=== PATIENT | female | born 1960 | race Caucasian/White ===

== ENCOUNTER 2020-10-16 19:49 | Inpatient (IN) | payer BC ==
[~2020-10-16] VITALS: Ht 160 cm; Wt 130.8 kg
[2020-10-16 21:36] VITALS: BP 129/68
[2020-10-16] MEDS ORDERED: POTA10808 PO (21:39)
[2020-10-16] MEDS ORDERED: AMLO2.5T3 PO (21:39)
[2020-10-16] MEDS ORDERED: guaiFENesin 200 MG TAB PO PRN (21:45)
[2020-10-16] MEDS ORDERED: HOME MED LIST COMPLETE! XX SCH (21:45)
[2020-10-16] MEDS ORDERED: COMBIVENT RESPIMAT 100-20MCG INHALER 4GM INH PRN (21:45)
[2020-10-16 22:00] VITALS: O2SAT 94
[2020-10-16 22:35] LABS: HEMATOCRIT 42.8 % (36.0-47.0); HEMOGLOBIN 14.7 g/dl (12.0-15.5); MEAN CORPUSCULAR HEMOGLOBIN 28.8 pg (27.0-33.0); MEAN CORPUSCULAR HGB CONC 34.3 g/dl (32.0-36.5); MEAN CORPUSCULAR VOLUME 83.9 fl (80.0-96.0); PLATELET COUNT, AUTOMATED 175 10^3/uL (150-450); WHITE BLOOD COUNT 6.6 10^3/uL (4.0-10.0)
[2020-10-16 22:44] LABS: INR 1.03; PROTHROMBIN TIME 13.9 SECONDS (12.7-14.5)
[2020-10-16 22:45] LABS: PARTIAL THROMBOPLASTIN TIME 28.3 SECONDS (25.9-37.0)
[2020-10-16 22:48] LABS: D-DIMER QUANT 1307.3 ng/ml (<500)
[2020-10-16 23:00] VITALS: O2SAT 95
[2020-10-16 23:06] LABS: BLOOD UREA NITROGEN 18 MG/DL (7-18); CALCIUM LEVEL 8.2 MG/DL (8.8-10.2); CARBON DIOXIDE LEVEL 17 MEQ/L (21-32); CHLORIDE LEVEL 105 MEQ/L (98-107); CPK CREATINE PHOSPHOKINASE 221 U/L (26-192); CREATININE FOR GFR 0.67 MG/DL (0.55-1.30); FERRITIN 1667 NG/ML (8-252); GLOMERULAR FILTRATION RATE > 60.0 (>45); GLUCOSE, FASTING 141 MG/DL (70-100); LDH LACTATE DEHYDROGENASE 432 U/L (84-246); MAGNESIUM LEVEL 2.5 MG/DL (1.8-2.4); NT-PRO BNP 29 PG/ML (<125); POTASSIUM SERUM 3.6 MEQ/L (3.5-5.1); SODIUM LEVEL 134 MEQ/L (136-145); TROPONIN I < 0.02 NG/ML (< 0.10)
[2020-10-16 23:07] LABS: ATYPICAL LYMPH 4 % (0-5); LYMPHOCYTES 14 % (16-44); MONOCYTES 8 % (0-5); NEUTROPHILS 73 % (28-66); PLATELET ESTIMATE NORMAL (NORMAL)
[2020-10-17] VITALS (15 sets, daily range): BP systolic 103–120; BP diastolic 52–82; O2SAT 87–99
[2020-10-17] MEDS ORDERED: HEPARIN SOD (PORCINE) 5000UNITS/ML 1ML VIAL/SYRINGE SC SCH (06:00)
[2020-10-17 07:42] LABS: HEMATOCRIT 43.8 % (36.0-47.0); HEMOGLOBIN 14.8 g/dl (12.0-15.5); MEAN CORPUSCULAR HGB CONC 33.8 g/dl (32.0-36.5); MEAN CORPUSCULAR VOLUME 85.9 fl (80.0-96.0); PLATELET COUNT, AUTOMATED 157 10^3/uL (150-450); WHITE BLOOD COUNT 7.1 10^3/uL (4.0-10.0)
[2020-10-17 08:09] LABS: ALBUMIN 2.7 GM/DL (3.2-5.2); ALT/SGPT 83 U/L (12-78); BILIRUBIN,DIRECT 0.2 MG/DL (0.0-0.2); BILIRUBIN,TOTAL 0.4 MG/DL (0.2-1.0); BLOOD UREA NITROGEN 20 MG/DL (7-18); CARBON DIOXIDE LEVEL 18 MEQ/L (21-32); CHLORIDE LEVEL 107 MEQ/L (98-107); CREATININE FOR GFR 0.75 MG/DL (0.55-1.30); GLOMERULAR FILTRATION RATE > 60.0 (>45); GLUCOSE, FASTING 139 MG/DL (70-100); MAGNESIUM LEVEL 2.5 MG/DL (1.8-2.4); POTASSIUM SERUM 3.4 MEQ/L (3.5-5.1); SODIUM LEVEL 138 MEQ/L (136-145); TOTAL PROTEIN 6.7 GM/DL (6.4-8.2)
[2020-10-17] MEDS: ASPIRIN 81MG ENTERIC TABLET PO SCH (08:11)
[2020-10-17] MEDS: dexameTHASONE 4 MG/ML 1ML VIAL (J1100 PER 1MG) IV SCH (08:11)
[2020-10-17 08:12] LABS: ATYPICAL LYMPH 6 % (0-5); LYMPHOCYTES 10 % (16-44); MONOCYTES 7 % (0-5); NEUTROPHILS 75 % (28-66); PLATELET ESTIMATE NORMAL (NORMAL)
[2020-10-17] MEDS ORDERED: POTASSIUM CITRATE 1080 MG (10MEQ) TAB PO SCH ×2 (09:00)
[2020-10-17 09:51] LABS: HEMOGLOBIN A1c 6.6 %
[2020-10-17] MEDS ORDERED: POTASSIUM CHLORIDE 10MEQ SR TABLET PO ONE (11:00)
[2020-10-17] MEDS: ENOXAPARIN 40MG/0.4ML SYRINGE (J1650 PER 10MG) SC SCH (11:53)
[2020-10-17] MEDS: guaiFENesin ER 600 MG TAB PO SCH ×2 (11:53→22:46)
[2020-10-17] MEDS: PANTOPRAZOLE 40MG VIAL (C9113 PER 1) IV SCH (11:53)
[2020-10-17] MEDS ORDERED: LevoFLOXacin IV 750 MG in IV 1 EA IV SCH (18:00)
[2020-10-17] MEDS: REMDESIVIR 100 MG in NS 250 ML IV SCH (22:47)
[2020-10-17] MEDS: SODIUM CHLORIDE 0.9% INJ 10 ML SYR IV SCH (23:59)
[2020-10-18] VITALS (16 sets, daily range): BP systolic 102–123; BP diastolic 55–76; O2SAT 88–100
[2020-10-18 06:00] LABS: HEMATOCRIT 43.1 % (36.0-47.0); HEMOGLOBIN 14.6 g/dl (12.0-15.5); MEAN CORPUSCULAR HEMOGLOBIN 29.1 pg (27.0-33.0); MEAN CORPUSCULAR HGB CONC 33.9 g/dl (32.0-36.5); MEAN CORPUSCULAR VOLUME 85.9 fl (80.0-96.0); PLATELET COUNT, AUTOMATED 207 10^3/uL (150-450); RED BLOOD COUNT 5.02 10^6/uL (4.00-5.40); WHITE BLOOD COUNT 9.1 10^3/uL (4.0-10.0)
[2020-10-18 06:09] LABS: INR 1.06; PARTIAL THROMBOPLASTIN TIME 29.1 SECONDS (25.9-37.0); PROTHROMBIN TIME 14.2 SECONDS (12.7-14.5)
[2020-10-18 06:28] LABS: ANISOCYTOSIS 1+; ATYPICAL LYMPH 4 % (0-5); LYMPHOCYTES 14 % (16-44); METAMYELOCYTES 1 % (0-0); MONOCYTES 12 % (0-5); NEUTROPHILS 69 % (28-66); PLATELET ESTIMATE NORMAL (NORMAL)
[2020-10-18 06:49] LABS: ALBUMIN 2.5 GM/DL (3.2-5.2); ALT/SGPT 66 U/L (12-78); BILIRUBIN,DIRECT 0.2 MG/DL (0.0-0.2); BILIRUBIN,TOTAL 0.4 MG/DL (0.2-1.0); BLOOD UREA NITROGEN 19 MG/DL (7-18); CARBON DIOXIDE LEVEL 20 MEQ/L (21-32); CHLORIDE LEVEL 111 MEQ/L (98-107); CPK CREATINE PHOSPHOKINASE 115 U/L (26-192); CREATININE FOR GFR 0.72 MG/DL (0.55-1.30); FERRITIN 1858 NG/ML (8-252); GLOMERULAR FILTRATION RATE > 60.0 (>45); GLUCOSE, FASTING 140 MG/DL (70-100); LDH LACTATE DEHYDROGENASE 462 U/L (84-246); MAGNESIUM LEVEL 2.6 MG/DL (1.8-2.4); NT-PRO BNP 126 PG/ML (<125); POTASSIUM SERUM 3.7 MEQ/L (3.5-5.1); SODIUM LEVEL 141 MEQ/L (136-145); TOTAL PROTEIN 6.2 GM/DL (6.4-8.2); TROPONIN I < 0.02 NG/ML (< 0.10)
[2020-10-18 07:27] LABS: C REACTIVE PROTEIN QUANTITATIV 7.07 MG/DL (0.00-0.30)
[2020-10-18] MEDS: dexameTHASONE 4 MG/ML 1ML VIAL (J1100 PER 1MG) IV SCH (09:12)
[2020-10-18] MEDS: ASPIRIN 81MG ENTERIC TABLET PO SCH (09:12)
[2020-10-18] MEDS: ENOXAPARIN 40MG/0.4ML SYRINGE (J1650 PER 10MG) SC SCH (09:12)
[2020-10-18] MEDS: guaiFENesin ER 600 MG TAB PO SCH ×2 (09:12→20:51)
[2020-10-18] MEDS: PANTOPRAZOLE 40MG VIAL (C9113 PER 1) IV SCH (12:45)
[2020-10-18] MEDS: REMDESIVIR 100 MG in NS 250 ML IV SCH (20:50)
[2020-10-18] MEDS: SODIUM CHLORIDE 0.9% INJ 10 ML SYR IV SCH (22:17)
[2020-10-19] VITALS (20 sets, daily range): BP systolic 102–117; BP diastolic 52–59; O2SAT 87–100
[2020-10-19] MEDS ORDERED: SODIUM CHLORIDE NASAL 0.65% SPRAY BTL (OCEAN) PRN (07:00)
[2020-10-19 08:30] LABS: HEMATOCRIT 42.9 % (36.0-47.0); HEMOGLOBIN 14.3 g/dl (12.0-15.5); MEAN CORPUSCULAR HEMOGLOBIN 28.8 pg (27.0-33.0); MEAN CORPUSCULAR HGB CONC 33.3 g/dl (32.0-36.5); MEAN CORPUSCULAR VOLUME 86.3 fl (80.0-96.0); PLATELET COUNT, AUTOMATED 159 10^3/uL (150-450); RED BLOOD COUNT 4.97 10^6/uL (4.00-5.40); WHITE BLOOD COUNT 9.5 10^3/uL (4.0-10.0)
[2020-10-19] MEDS: ENOXAPARIN 40MG/0.4ML SYRINGE (J1650 PER 10MG) SC SCH (08:40)
[2020-10-19] MEDS: ASPIRIN 81MG ENTERIC TABLET PO SCH (08:40)
[2020-10-19] MEDS: guaiFENesin ER 600 MG TAB PO SCH ×2 (08:41→20:38)
[2020-10-19] MEDS: dexameTHASONE 4 MG/ML 1ML VIAL (J1100 PER 1MG) IV SCH (08:42)
[2020-10-19 08:45] LABS: BLOOD UREA NITROGEN 18 MG/DL (7-18); CALCIUM LEVEL 8.3 MG/DL (8.8-10.2); CARBON DIOXIDE LEVEL 20 MEQ/L (21-32); CHLORIDE LEVEL 113 MEQ/L (98-107); CREATININE FOR GFR 0.65 MG/DL (0.55-1.30); GLOMERULAR FILTRATION RATE > 60.0 (>45); GLUCOSE, FASTING 120 MG/DL (70-100); MAGNESIUM LEVEL 2.5 MG/DL (1.8-2.4); POTASSIUM SERUM 3.1 MEQ/L (3.5-5.1); SODIUM LEVEL 143 MEQ/L (136-145)
[2020-10-19 09:32] LABS: ATYPICAL LYMPH 4 % (0-5); LYMPHOCYTES 18 % (16-44); MONOCYTES 3 % (0-5); NEUTROPHILS 75 % (28-66); PLATELET ESTIMATE NORMAL (NORMAL)
[2020-10-19] MEDS ORDERED: POTASSIUM CHLORIDE 10MEQ SR TABLET PO ONE (10:00)
[2020-10-19] MEDS: PANTOPRAZOLE 40MG VIAL (C9113 PER 1) IV SCH (10:21)
[2020-10-19 10:55] LABS: C REACTIVE PROTEIN QUANTITATIV 5.71 MG/DL (0.00-0.30); FERRITIN 1301 NG/ML (8-252)
[2020-10-19 13:11] LABS: HEPATITIS B SURFACE ANTIGEN NEGATIVE (NEGATIVE)
[2020-10-19 13:38] LABS: HEPATITIS B CORE ANTIBODY IGM NEGATIVE (NEGATIVE); HEPATITIS C VIRUS ABY INDEX < 0.0 INDEX (<0.8)
[2020-10-19] MEDS: REMDESIVIR 100 MG in NS 250 ML IV SCH (20:47)
[2020-10-19] MEDS: SODIUM CHLORIDE 0.9% INJ 10 ML SYR IV SCH (21:59)
[2020-10-20] VITALS (14 sets, daily range): BP systolic 102–140; BP diastolic 52–81; O2SAT 80–99
[2020-10-20 07:32] LABS: HEMATOCRIT 41.3 % (36.0-47.0); HEMOGLOBIN 13.9 g/dl (12.0-15.5); MEAN CORPUSCULAR HEMOGLOBIN 28.8 pg (27.0-33.0); MEAN CORPUSCULAR HGB CONC 33.7 g/dl (32.0-36.5); MEAN CORPUSCULAR VOLUME 85.7 fl (80.0-96.0); PLATELET COUNT, AUTOMATED 241 10^3/uL (150-450); RED BLOOD COUNT 4.82 10^6/uL (4.00-5.40); WHITE BLOOD COUNT 8.9 10^3/uL (4.0-10.0)
[2020-10-20 07:43] LABS: INR 1.15; PROTHROMBIN TIME 15.2 SECONDS (12.7-14.5)
[2020-10-20 07:44] LABS: PARTIAL THROMBOPLASTIN TIME 26.4 SECONDS (25.9-37.0)
[2020-10-20 08:04] LABS: ALBUMIN 2.2 GM/DL (3.2-5.2); ALT/SGPT 36 U/L (12-78); BILIRUBIN,DIRECT 0.2 MG/DL (0.0-0.2); BILIRUBIN,TOTAL 0.6 MG/DL (0.2-1.0); BLOOD UREA NITROGEN 16 MG/DL (7-18); CALCIUM LEVEL 8.1 MG/DL (8.8-10.2); CARBON DIOXIDE LEVEL 23 MEQ/L (21-32); CHLORIDE LEVEL 113 MEQ/L (98-107); CPK CREATINE PHOSPHOKINASE 107 U/L (26-192); CREATININE FOR GFR 0.53 MG/DL (0.55-1.30); GLOMERULAR FILTRATION RATE > 60.0 (>45); GLUCOSE, FASTING 117 MG/DL (70-100); LDH LACTATE DEHYDROGENASE 378 U/L (84-246); MAGNESIUM LEVEL 2.4 MG/DL (1.8-2.4); NT-PRO BNP 225 PG/ML (<125); POTASSIUM SERUM 3.2 MEQ/L (3.5-5.1); SODIUM LEVEL 143 MEQ/L (136-145); TOTAL PROTEIN 6.3 GM/DL (6.4-8.2); TROPONIN I < 0.02 NG/ML (< 0.10)
[2020-10-20 08:05] LABS: FERRITIN 1072 NG/ML (8-252)
[2020-10-20 08:10] LABS: LYMPHOCYTES 19 % (16-44); MONOCYTES 6 % (0-5); NEUTROPHILS 75 % (28-66); PLATELET ESTIMATE NORMAL (NORMAL)
[2020-10-20] MEDS: ENOXAPARIN 40MG/0.4ML SYRINGE (J1650 PER 10MG) SC SCH (08:24)
[2020-10-20] MEDS: dexameTHASONE 4 MG/ML 1ML VIAL (J1100 PER 1MG) IV SCH (08:25)
[2020-10-20] MEDS: guaiFENesin ER 600 MG TAB PO SCH ×2 (08:25→20:43)
[2020-10-20] MEDS: ASPIRIN 81MG ENTERIC TABLET PO SCH (08:25)
[2020-10-20] MEDS: ACETAMINOPHEN TAB 650MG DOSE (2X325MG) PO PRN (08:31)
[2020-10-20] MEDS ORDERED: POTASSIUM CHLORIDE 10MEQ SR TABLET PO ONE (10:30)
[2020-10-20] MEDS: PANTOPRAZOLE 40MG VIAL (C9113 PER 1) IV SCH (10:46)
[2020-10-20] MEDS: REMDESIVIR 100 MG in NS 250 ML IV SCH (20:43)
[2020-10-20] MEDS: SODIUM CHLORIDE 0.9% INJ 10 ML SYR IV SCH (20:43)
[2020-10-21] VITALS (8 sets, daily range): BP systolic 113–142; BP diastolic 55–78; O2SAT 95–97
[2020-10-21 07:04] LABS: BASO % 0.2 % (0.0-1.0); EOS # 0.1 10^3/uL (0.0-0.5); EOS % 1.1 % (0.0-3.0); HEMATOCRIT 40.6 % (36.0-47.0); HEMOGLOBIN 13.6 g/dl (12.0-15.5); LYMPH # 1.7 10^3/uL (1.5-5.0); LYMPH % 16.9 % (24.0-44.0); MEAN CORPUSCULAR HEMOGLOBIN 28.7 pg (27.0-33.0); MEAN CORPUSCULAR HGB CONC 33.5 g/dl (32.0-36.5); MEAN CORPUSCULAR VOLUME 85.7 fl (80.0-96.0); MONO % 10.3 % (2.0-8.0); NEUTROPHILS # 7.1 10^3/uL (1.5-8.5); NEUTROPHILS % 70.3 % (36.0-66.0); PLATELET COUNT, AUTOMATED 265 10^3/uL (150-450); RED BLOOD COUNT 4.74 10^6/uL (4.00-5.40); WHITE BLOOD COUNT 10.1 10^3/uL (4.0-10.0)
[2020-10-21 07:30] LABS: BLOOD UREA NITROGEN 14 MG/DL (7-18); CALCIUM LEVEL 7.8 MG/DL (8.8-10.2); CARBON DIOXIDE LEVEL 21 MEQ/L (21-32); CHLORIDE LEVEL 111 MEQ/L (98-107); CREATININE FOR GFR 0.56 MG/DL (0.55-1.30); GLOMERULAR FILTRATION RATE > 60.0 (>45); GLUCOSE, FASTING 116 MG/DL (70-100); MAGNESIUM LEVEL 2.3 MG/DL (1.8-2.4); POTASSIUM SERUM 3.3 MEQ/L (3.5-5.1); SODIUM LEVEL 141 MEQ/L (136-145)
[2020-10-21] MEDS: PANTOPRAZOLE 40MG VIAL (C9113 PER 1) IV SCH (10:23)
[2020-10-21] MEDS: ASPIRIN 81MG ENTERIC TABLET PO SCH (10:23)
[2020-10-21] MEDS: guaiFENesin ER 600 MG TAB PO SCH ×2 (10:23→20:12)
[2020-10-21] MEDS: dexameTHASONE 4 MG/ML 1ML VIAL (J1100 PER 1MG) IV SCH (10:23)
[2020-10-21] MEDS: ENOXAPARIN 40MG/0.4ML SYRINGE (J1650 PER 10MG) SC SCH (10:24)
[2020-10-21] MEDS ORDERED: POTASSIUM CHLORIDE 10MEQ SR TABLET PO ONE (10:30)
[2020-10-22] VITALS (13 sets, daily range): BP systolic 113–135; BP diastolic 56–80; O2SAT 92–98
[2020-10-22] MEDS: COMBIVENT RESPIMAT 100-20MCG INHALER 4GM INH SCH ×4 (01:30→19:57)
[2020-10-22 06:11] LABS: BASO % 0.2 % (0.0-1.0); EOS # 0.1 10^3/uL (0.0-0.5); EOS % 0.9 % (0.0-3.0); HEMOGLOBIN 13.6 g/dl (12.0-15.5); LYMPH # 1.7 10^3/uL (1.5-5.0); LYMPH % 17.1 % (24.0-44.0); MEAN CORPUSCULAR HEMOGLOBIN 28.9 pg (27.0-33.0); MEAN CORPUSCULAR VOLUME 85.1 fl (80.0-96.0); MONO % 10.3 % (2.0-8.0); NEUTROPHILS # 6.9 10^3/uL (1.5-8.5); NEUTROPHILS % 70.5 % (36.0-66.0); PLATELET COUNT, AUTOMATED 299 10^3/uL (150-450); WHITE BLOOD COUNT 9.8 10^3/uL (4.0-10.0)
[2020-10-22 06:30] LABS: INR 1.11; PARTIAL THROMBOPLASTIN TIME 27.9 SECONDS (25.9-37.0); PROTHROMBIN TIME 14.8 SECONDS (12.7-14.5)
[2020-10-22 06:48] LABS: ALT/SGPT 23 U/L (12-78); BILIRUBIN,DIRECT 0.2 MG/DL (0.0-0.2); BILIRUBIN,TOTAL 0.3 MG/DL (0.2-1.0); BLOOD UREA NITROGEN 15 MG/DL (7-18); CALCIUM LEVEL 7.8 MG/DL (8.8-10.2); CARBON DIOXIDE LEVEL 24 MEQ/L (21-32); CHLORIDE LEVEL 111 MEQ/L (98-107); CPK CREATINE PHOSPHOKINASE 85 U/L (26-192); FERRITIN 640 NG/ML (8-252); GLOMERULAR FILTRATION RATE > 60.0 (>45); GLUCOSE, FASTING 120 MG/DL (70-100); LDH LACTATE DEHYDROGENASE 335 U/L (84-246); MAGNESIUM LEVEL 2.3 MG/DL (1.8-2.4); NT-PRO BNP 250 PG/ML (<125); POTASSIUM SERUM 4.1 MEQ/L (3.5-5.1); SODIUM LEVEL 143 MEQ/L (136-145); TOTAL PROTEIN 5.6 GM/DL (6.4-8.2); TROPONIN I < 0.02 NG/ML (< 0.10)
[2020-10-22] MEDS: guaiFENesin ER 600 MG TAB PO SCH ×2 (08:26→19:57)
[2020-10-22] MEDS: dexameTHASONE 4 MG/ML 1ML VIAL (J1100 PER 1MG) IV SCH (08:26)
[2020-10-22] MEDS: ASPIRIN 81MG ENTERIC TABLET PO SCH (08:26)
[2020-10-22] MEDS: ENOXAPARIN 40MG/0.4ML SYRINGE (J1650 PER 10MG) SC SCH (08:26)
[2020-10-22] MEDS: PANTOPRAZOLE 40MG VIAL (C9113 PER 1) IV SCH (12:53)
[2020-10-22] MEDS: ACETAMINOPHEN TAB 650MG DOSE (2X325MG) PO PRN (16:33)
[2020-10-23] VITALS (11 sets, daily range): BP systolic 103–119; BP diastolic 59–80; O2SAT 94–98
[2020-10-23] MEDS: COMBIVENT RESPIMAT 100-20MCG INHALER 4GM INH SCH ×4 (02:07→20:00)
[2020-10-23 07:58] LABS: BASO % 0.2 % (0.0-1.0); EOS # 0.2 10^3/uL (0.0-0.5); EOS % 1.5 % (0.0-3.0); HEMATOCRIT 42.3 % (36.0-47.0); HEMOGLOBIN 13.9 g/dl (12.0-15.5); LYMPH # 2.4 10^3/uL (1.5-5.0); LYMPH % 21.9 % (24.0-44.0); MEAN CORPUSCULAR HEMOGLOBIN 28.4 pg (27.0-33.0); MEAN CORPUSCULAR HGB CONC 32.9 g/dl (32.0-36.5); MEAN CORPUSCULAR VOLUME 86.5 fl (80.0-96.0); MONO # 0.9 10^3/uL (0.0-0.8); MONO % 8.1 % (2.0-8.0); NEUTROPHILS # 7.2 10^3/uL (1.5-8.5); NEUTROPHILS % 66.7 % (36.0-66.0); PLATELET COUNT, AUTOMATED 353 10^3/uL (150-450); RED BLOOD COUNT 4.89 10^6/uL (4.00-5.40); WHITE BLOOD COUNT 10.8 10^3/uL (4.0-10.0)
[2020-10-23 08:12] LABS: BLOOD UREA NITROGEN 16 MG/DL (7-18); CALCIUM LEVEL 7.8 MG/DL (8.8-10.2); CARBON DIOXIDE LEVEL 25 MEQ/L (21-32); CHLORIDE LEVEL 111 MEQ/L (98-107); CREATININE FOR GFR 0.59 MG/DL (0.55-1.30); GLOMERULAR FILTRATION RATE > 60.0 (>45); GLUCOSE, FASTING 109 MG/DL (70-100); MAGNESIUM LEVEL 2.2 MG/DL (1.8-2.4); POTASSIUM SERUM 4.1 MEQ/L (3.5-5.1); SODIUM LEVEL 141 MEQ/L (136-145)
[2020-10-23] MEDS: ENOXAPARIN 40MG/0.4ML SYRINGE (J1650 PER 10MG) SC SCH (09:02)
[2020-10-23] MEDS: guaiFENesin ER 600 MG TAB PO SCH ×2 (09:04→20:28)
[2020-10-23] MEDS: dexameTHASONE 4 MG/ML 1ML VIAL (J1100 PER 1MG) IV SCH (09:04)
[2020-10-23] MEDS: ASPIRIN 81MG ENTERIC TABLET PO SCH (09:04)
[2020-10-23] MEDS: PANTOPRAZOLE 40MG VIAL (C9113 PER 1) IV SCH (12:41)
[2020-10-23] MEDS: ACETAMINOPHEN TAB 650MG DOSE (2X325MG) PO PRN (17:32)
[2020-10-24 02:00] VITALS: BP 114/76
[2020-10-24] MEDS: COMBIVENT RESPIMAT 100-20MCG INHALER 4GM INH SCH ×3 (02:00→12:50)
[2020-10-24 04:00] VITALS: BP 130/63
[2020-10-24 08:00] VITALS: BP 109/73; O2SAT 95
[2020-10-24] MEDS: ASPIRIN 81MG ENTERIC TABLET PO SCH (08:18)
[2020-10-24] MEDS: guaiFENesin ER 600 MG TAB PO SCH (08:18)
[2020-10-24] MEDS: ENOXAPARIN 40MG/0.4ML SYRINGE (J1650 PER 10MG) SC SCH (08:18)
[2020-10-24 08:19] VITALS: BP 109/73
[2020-10-24] MEDS: dexameTHASONE 4 MG/ML 1ML VIAL (J1100 PER 1MG) IV SCH (08:19)
[2020-10-24] MEDS: PANTOPRAZOLE 40MG VIAL (C9113 PER 1) IV SCH (10:00)
[2020-10-24 10:35] LABS: HEMATOCRIT 42.1 % (36.0-47.0); MEAN CORPUSCULAR HGB CONC 33.3 g/dl (32.0-36.5); MEAN CORPUSCULAR VOLUME 87.3 fl (80.0-96.0); PLATELET COUNT, AUTOMATED 314 10^3/uL (150-450); RED BLOOD COUNT 4.82 10^6/uL (4.00-5.40); WHITE BLOOD COUNT 11.8 10^3/uL (4.0-10.0)
[2020-10-24 11:05] LABS: BLOOD UREA NITROGEN 15 MG/DL (7-18); CARBON DIOXIDE LEVEL 22 MEQ/L (21-32); CHLORIDE LEVEL 109 MEQ/L (98-107); CREATININE FOR GFR 0.67 MG/DL (0.55-1.30); GLOMERULAR FILTRATION RATE > 60.0 (>45); GLUCOSE, FASTING 199 MG/DL (70-100); POTASSIUM SERUM 3.9 MEQ/L (3.5-5.1); SODIUM LEVEL 140 MEQ/L (136-145)
[2020-10-24] MEDS ORDERED: COMBAER6 INH (12:46)
[2020-10-24] MEDS ORDERED: ASPI-551 PO (12:46)
[2020-10-24] MEDS ORDERED: MUCI600T31 PO (12:46)
== END 2020-10-24 14:40 | disposition home or self-care (01) | DRG 137 ==
LOC: M ICU 21:25 → M 4MAIN 10-17 14:30
PROVIDERS: ADMIT Internal Medicine; ATTEND Internal Medicine
DX: U07.1 COVID-19 (principal); J96.01 Acute respiratory failure with hypoxia; J12.82 Pneumonia due to coronavirus disease 2019; E66.01 Morbid (severe) obesity due to excess calories; Z68.43 Body mass index [BMI] 50.0-59.9, adult; I10 Essential (primary) hypertension; E87.6 Hypokalemia; Z87.442 Personal history of urinary calculi; Z79.899 Other long term (current) drug therapy; Z79.82 Long term (current) use of aspirin; Z88.8 Allergy status to other drugs, medicaments and biological substances